=== PATIENT | female | born 1945 | race Caucasian/White ===

== ENCOUNTER 2024-08-18 09:45 | Day surgery (SDC) | payer MEDICARE, OTHER, SELFPAY ==
--- NOTE | 2024-08-18 11:48 | ITS.CL.CARDI ---
Cafeteria Or Lunchroom Checker - Cardioversion
Cardioversion
Procedure Report:
Date of Procedure: 08/18/24
Procedure: Cardioversion
Indication: Symptomatic atrial fibrillation
Performing Physician: Evan Robbins MD
Technique: The patient was brought to the holding area. Signed informed consent was obtained. A time out was called and performed. The patient was anesthetized by the anesthesia service. Anticoagulation status was reviewed and appropriate. R2 pads
were placed anteriorly and posteriorly. A 200 J synchronized biphasic shock restored normal sinus rhythm without significant bradycardia. There were no complications.
Conclusion: Uncomplicated cardioversion from atrial fibrillation to sinus rhythm.
Recommendation: Routine post cardioversion care. Continue intermodal truck driver anticoagulation.
== END 2024-08-18 12:35 | disposition home or self-care (01) ==
LOC: CATH 09:45
PROVIDERS: ATTENDING PHYSICIAN Internal Medicine Cardiovascular Disease; FAMILY PHYSICIAN Family Medicine; OTHER PHYSICIAN Internal Medicine Cardiovascular Disease
DX: I48.91 Unspecified atrial fibrillation (principal); Z79.01 Long term (current) use of anticoagulants
CPT/HCPCS: 92960; 93005

== ENCOUNTER → 2024-09-14 11:32 | Outpatient (REF) | payer MEDICARE, OTHER, SELFPAY ==
[2024-09-14 15:22] LABS: ALT (SGPT) 14 U/L (0-35); AST (SGOT) 19 U/L (14-36); Albumin 4.6 g/dl (3.5-5.0); Alkaline Phosphatase 91 U/L (38-126); Blood Urea Nitrogen 11 mg/dl (7-17); Calcium 9.9 mg/dl (8.4-10.2); Carbon Dioxide 30 mmol/L (22-30); Chloride 100 mmol/L (98-107); Glucose 99 mg/dl (70-99); HDL Cholesterol 55 mg/dl; LDL Cholesterol, Calculated 65 mg/dl; Potassium 4.7 mmol/L (3.5-5.1); Sodium 137 mmol/L (135-145); Total Bilirubin 0.7 mg/dl (0.2-1.3); Total Cholesterol 143 mg/dl (50-199); Total Protein 7.4 g/dl (6.3-8.2); Triglyceride 115 mg/dl (10-149); Very Low Density Lipoprotein 23 mg/dl (0-30); eGFR > 60.00
[2024-09-14 15:49] LABS: TSH 3.91 uIU/ml (0.47-4.68)
== END ==
LOC: RCS 11:32
PROVIDERS: ATTENDING PHYSICIAN Internal Medicine Cardiovascular Disease; FAMILY PHYSICIAN Family Medicine
DX: I48.3 Typical atrial flutter (principal); E78.5 Hyperlipidemia, unspecified
CPT/HCPCS: 36415; 80053; 80061; 84443; 93306; Q9950

== ENCOUNTER → 2024-11-11 12:29 | Outpatient (REF) | payer MEDICARE, OTHER, SELFPAY ==
[2024-11-11 13:24] LABS: Hematocrit 35.1 % (37.0-47.0); Hemoglobin 11.7 g/dL (12.0-16.0); Mean Corp Hgb Conc. 33.3 g/dL (33.0-37.0); Mean Corpuscular Volume 95.9 fL (81.0-99.0); Nucleated Red Blood Cells % 0 %; Platelet Count 228 10^3/uL (130-400); Red Cell Dist. Width 12.7 % (11.5-14.5)
[2024-11-11 13:34] LABS: INR 1.18; PT 15.3 Sec (11.4-14.6)
[2024-11-11 13:59] LABS: ALT (SGPT) 13 U/L (0-35); AST (SGOT) 22 U/L (14-36); Albumin 4.4 g/dl (3.5-5.0); Alkaline Phosphatase 78 U/L (38-126); Blood Urea Nitrogen 13 mg/dl (7-17); Calcium 9.5 mg/dl (8.4-10.2); Carbon Dioxide 29 mmol/L (22-30); Chloride 101 mmol/L (98-107); Glucose 99 mg/dl (70-99); Magnesium 2.1 mg/dl (1.6-2.3); Potassium 5.8 mmol/L (3.5-5.1); Sodium 135 mmol/L (135-145); Total Protein 7.6 g/dl (6.3-8.2); eGFR > 60.00
== END ==
LOC: SDSPAT 12:29
PROVIDERS: ATTENDING PHYSICIAN Internal Medicine Cardiovascular Disease; FAMILY PHYSICIAN Family Medicine; REFERRING PHYSICIAN Internal Medicine Cardiovascular Disease
DX: I48.0 Paroxysmal atrial fibrillation (principal)
CPT/HCPCS: 36415; 75572; 80053; 83735; 85025; 85610; 86850; 86900; 86901; Q9967

== ENCOUNTER → 2024-11-15 14:29 | Outpatient (REF) | payer MEDICARE, OTHER, SELFPAY ==
[2024-11-15 15:32] LABS: Hematocrit 34.2 % (37.0-47.0); Hemoglobin 11.4 g/dL (12.0-16.0); Mean Corp Hgb Conc. 33.3 g/dL (33.0-37.0); Mean Corpuscular Volume 95.8 fL (81.0-99.0); Nucleated Red Blood Cells % 0 %; Platelet Count 251 10^3/uL (130-400); Red Cell Dist. Width 12.7 % (11.5-14.5)
[2024-11-15 16:10] LABS: Blood Urea Nitrogen 12 mg/dl (7-17); Calcium 9.7 mg/dl (8.4-10.2); Carbon Dioxide 27 mmol/L (22-30); Chloride 100 mmol/L (98-107); Glucose 86 mg/dl (70-99); Potassium 4.8 mmol/L (3.5-5.1); Sodium 133 mmol/L (135-145); eGFR > 60.00
== END ==
LOC: REG 14:29
PROVIDERS: ATTENDING PHYSICIAN Internal Medicine Cardiovascular Disease; FAMILY PHYSICIAN Family Medicine
DX: I48.0 Paroxysmal atrial fibrillation (principal); E87.5 Hyperkalemia; D64.9 Anemia, unspecified
CPT/HCPCS: 36415; 80048; 85025

== ENCOUNTER 2024-11-16 08:41 | Day surgery (SDC) | payer MEDICARE, OTHER, SELFPAY ==
[2024-11-11 12:56] VITALS: BMI 28.5
[2024-11-16] VITALS (15 sets, daily range): BP systolic 96–147; BP diastolic 43–86; BMI 28.5
[2024-11-16] MEDS: TYLENOL 1000 MG PO (09:53)
[2024-11-16 12:07] LABS: ACT-LR - POC 258 Seconds (116-155)
[2024-11-16 12:26] LABS: ACT-LR - POC 287 Seconds (116-155)
[2024-11-16 12:45] LABS: ACT-LR - POC 385 Seconds (116-155)
[2024-11-16 13:01] LABS: ACT-LR - POC 358 Seconds (116-155)
[2024-11-16 13:17] LABS: ACT-LR - POC 335 Seconds (116-155)
[2024-11-16 13:33] LABS: ACT-LR - POC 361 Seconds (116-155)
[2024-11-16 13:49] LABS: ACT-LR - POC 137 Seconds (116-155)
--- NOTE | 2024-11-16 14:03 | ITS.CL.ABL ---
Bread Packer - Ablation
Ablation
Procedure Report:
Primary Medical Library Assistant: Dr Roby Otero
Procedure Date: 11/16/2024
Patient History:
Patient is a pleasant 78-year-old female with a past medical history significant for CVA, glaucoma, NSVT, hypertension, lumbar radiculopathy and surgeries, arthritis, symptomatic persistent atrial fibrillation.
See H&P for complete details.
Indication:
Symptomatic persistent atrial fibrillation
Arrhythmia Specific History:
Prior Medical Therapies for Rate and Rhythm Control:
X Beta-elías
[ ] Calcium channel-elías
[ ] Amiodarone
[ ] Dronederone
[ ] Sotalol
[ ] Flecainide
[ ] Dofetilide
[ ] Options limited by bradycardia
[ ] Options limited by comorbid renal disease
Prior Procedural Therapies for AF/AFL:
X Cardioversion
[ ] Pulmonary Vein Isolation
[ ] Posterior Wall Isolation
[ ] Additional lines (Specify)
[ ] Surgical [place]-MAZE or PVI (Specify)
Procedure Performed:
X AF ablation procedure (81891) -- includes LA/CS pacing, trans-septal, 3D mapping, + ICE
[ ] +IV drug (54702)
[ ] +Other Arrhythmia (20736)
X +Other AF Line/ablation (86557 x2) -- floor line, roof line, posterior wall isolation
Risks and expected recovery has been explained in detail. Alternative options have been explored, and in a shared-decision making fashion we have decided that this was the most appropriate procedure.
Method
NPO status confirmed. Grounding pad applied. Defibrillator pads applied. Continuous surface ECG, pulse oximetry, and blood pressure were monitored. Procedure was performed under general anesthesia, with anesthesia services.
Both groins were clipped, prepped with Chloraprep, and draped in sterile fashion. Time out was called. Local anesthesia administered with bupivacaine. The right femoral vein was accessed for catheter placement, using ultrasound guidance (images
saved to record), micro-puncture needle/wire, and modified seldinger technique. 3 sheaths were placed. The following catheters were used:
[ ] Tacticath SE (D/F Curve) ablation catheter
X Viewflex 9Fr ICE catheter
X Inquiry decapolar 6Fr diagnostic catheter
[ ] CRD Hex 6Fr
X FlexCath Contour 10 Fr with PulseSelect PFA Catheter
X Advisor HD Grid Mapping Catheter, SE
[ ] Acuson AcuNav 8 Fr ICE catheter
[ ]Other: [ ]
Intracardiac ultrasound (ICE) was carefully advanced into the right atrium to guide sheath placement over a J-wire, catheter placement, guide trans-septal puncture, identify potential complications, identify anatomic structures and ensure proper
contact between ablation catheter and tissue.
Heparin was given prior to trans-septal puncture. Heparin was given to achieve and maintain a target ACT of 300-400 seconds throughout the procedure.
Trans-septal access was performed under ICE guidance. The trans-septal puncture was performed with a SafeSept wire through a Brockenbrough needle assembly through the steerable sheath. The wire was visualized as it entered the LSPV and system
advanced under ICE guidance and fluoroscopy into the LA. The Brockenbrough needle assembly, SafeSept wire and sheath dilator were removed under negative pressure. LA pressure was measured and recorded.
ICE and 3D mapping was performed to identify relevant cardiac structures. A careful 3D map was created to assess for regions of low-voltage and abnormal electrogram signals using HD grid mapping catheter and PulseSelect catheter. Additional mapping
was performed as outlined below.
Prior to ablation, glycopyrrolate was provided. PulseSelect catheter was advanced over J-wire to the ostium of each vein. Pulmonary vein isolation was performed with ostial and antral lesions in a circumferential manner. Contact was visualized via
EAM, ICE, fluoroscopy, and EGM signals.
After accomplishing pulmonary venous isolation, mapping identified additional areas likely to be extra PV contributors to atrial fibrillation. These areas demonstrated patchy low voltage as well as complex fractionated electrograms. These areas can
be sites for the formation of rotors which can drive and maintain atrial fibrillation. These areas are known to be significant contributors to initiation and perpetuation of atrial fibrillation.
Additional energy applications/additional ablation sets targeted extra PV contributors to atrial fibrillation.
Targets for additional PFA ablation included: LA posterior wall targeted with pulsed electric field energy isolating the posterior wall of the left atrium. Posterior wall isolation was performed by anchoring the J-wire within the pulmonary vein and
placing the PulseSelect catheter in contact posterior wall as visualized by aforementioned methods.
After ablation of the posterior wall, targets remained including:
- Inferior LA floor
- Anterior LA roof
These areas were ablated using pulsed electric field energy eliminating the extra PV contributors to atrial fibrillation.
Following completion of ablation lesions, sinus rhythm was restored with a 200J synchronized DCCV and a post-ablation voltage/activation map was performed in sinus rhythm. Entrance and exit block were confirmed for each vein and the posterior wall.
Catheter and sheath were removed from the left atrium and post-ablation intracardiac echo evaluation was consistent with pre-ablation with no changes and no pericardial effusion and there is no left atrial thrombus or left ventricle thrombus seen.
Electrophysiology study was performed. Hemostasis was obtained with figure of 8 stitch for each groin and with manual pressure. Protamine was used for reversal.
Estimated Blood Loss
5 mL
Complications
None
Fluoroscopy: 10.6 minutes; 18.51 mGy; DAP 6.88
LA Pressure: Pre 13 mmHg, post 7 mmHg
Baseline Intervals:
Rhythm: AF
QRS: 78 ms
QT: 358 ms
QTc: 496 ms
Post-Procedure Intervals:
TN: 206 ms
QRS: 71 ms
QT: 428 ms
QTc: 468 ms
AVWB: 380 ms
Recommendations
- Bedrest with straight-leg precautions as ordered
- Admit with anticipate discharge home tomorrow after overnight observation
- Resume home medications as indicated
- Ok to resume anticoagulation tonight if patient and groin sites stable
- PPI daily for 30 days
- Plan for follow-up in office as scheduled
Bandar Diaz DO, FACC, RS
Clinical [employer]
cc: Dr Roby Otero, Dr Ruddy Padilla
[2024-11-16] MEDS: ANESTHETIC LOZENGE 1 LOZENGE PO (16:25)
--- NOTE | 2024-11-16 16:29 | PTCARENOTE ---
Rec'd pt from assistant laboratory director. R groin is c/d/i w/ figure 8 suture. No bleeding/hematoma noted. Pt has no complaints of CP/discomfort/SOB at this time. Activity restrictions reviewed w/ pt and verbalizes understanding. Currently in bed; call jessica w/in
reach.
[2024-11-16] MEDS: NEURONTIN PO (18:11)
[2024-11-16] MEDS: LIPITOR 40 MG PO (18:27)
[2024-11-16] MEDS: NEURONTIN 100 MG PO ×2 (18:27→22:45)
[2024-11-16] MEDS: TIMOPTIC 0.5% OPHTHALMIC SOLUTION 1 DROP BOTH EYES (21:01)
[2024-11-16] MEDS: XARELTO 20 MG PO (21:01)
[2024-11-16] MEDS: XALATAN OPHTHALMIC SOLUTION 1 DROP BOTH EYES (22:45)
--- NOTE | 2024-11-17 01:42 | PTCARENOTE ---
Pt AAOx3, VSS and sating 96% RA. Denies any chest discomfort or SOB. Tele monitor shows SR w/ 1st AV block, HR in the 60-80s at rest. Right groin site C/D/I. Patient ambulates w/ standby assist. Denies any dizziness. Aware of POC, call lopez in
reach.
[2024-11-17 02:06] VITALS: BP 137/85; BMI 28.3
[2024-11-17] MEDS: ANESTHETIC LOZENGE 1 LOZENGE PO (02:23)
[2024-11-17 02:53] LABS: Hematocrit 30.9 % (37.0-47.0); Hemoglobin 10.2 g/dL (12.0-16.0); Mean Corp Hgb Conc. 33.0 g/dL (33.0-37.0); Mean Corpuscular Volume 96.0 fL (81.0-99.0); Platelet Count 228 10^3/uL (130-400); Red Cell Dist. Width 13.1 % (11.5-14.5)
[2024-11-17 03:20] LABS: Blood Urea Nitrogen 15 mg/dl (7-17); Calcium 9.3 mg/dl (8.4-10.2); Carbon Dioxide 27 mmol/L (22-30); Chloride 105 mmol/L (98-107); Estimated Creatinine Clearance 56 ml/min; Glucose 141 mg/dl (70-99); Magnesium 1.9 mg/dl (1.6-2.3); Potassium 4.4 mmol/L (3.5-5.1); Sodium 134 mmol/L (135-145); eGFR > 60.00
[2024-11-17 07:19] VITALS: BP 110/53
[2024-11-17] MEDS: TIMOPTIC 0.5% OPHTHALMIC SOLUTION 1 DROP BOTH EYES (07:47)
[2024-11-17] MEDS: TOPROL XL 50 MG PO (07:51)
[2024-11-17] MEDS: NEURONTIN 100 MG PO (07:51)
[2024-11-17] MEDS: PROTONIX 40 MG PO (07:51)
--- NOTE | 2024-11-17 08:30 | W.PN.CARDCBS ---
Addendum entered and electronically signed by Terry Morillo MD 11/17/24 09:54:
patient seen and examined
agree with CHURCH ORGANIST note and assessment
agree with CHURCH ORGANIST plan
SR on tele
groins CDI
Exam:
aao x 3
non focal neurologically
cor regular
rest of exam deferred
Impression:
Symptomatic persistent Afib/Aflutter
post PVI PFA 11/16/24
CVA 05/2020
Hyperlipidemia
NSVT
DDD
Knee arthritis
Glaucoma
Plan:
post ablation feels good
tele SR 1deg AVB, occ PVC's and PAC's
groin stable
OAC Xarelto
continue metoprolol xl 50mg
PPI x 30 days
OOB ambulate
f/u Dr. Otero in 3 mo
home today
Original Note:
Today's Communication / Plan
-
post ablation, stable for d/c home
Impression / Plan
-
PCP: Ruddy Padilla MD
CDY: Roby Otero MD
Patient is a pleasant 78-year-old female with a past medical history significant for CVA, glaucoma, NSVT, hypertension, lumbar radiculopathy and surgeries, arthritis, symptomatic persistent atrial fibrillation.
See H&P for complete details.
Indication:
Symptomatic persistent atrial fibrillation
Impression:
Symptomatic persistent Afib/Aflutter
post PVI PFA 11/16/24
CVA 05/2020
Hyperlipidemia
NSVT
DDD
Knee arthritis
Glaucoma
Plan:
post ablation feels good
tele SR 1deg AVB, occ PVC's and PAC's
groin stable
OAC Xarelto
continue metoprolol xl 50mg
PPI x 30 days
OOB ambulate
f/u Dr. Otero in 3 mo
home today
Progress Note - Frame Stylist
Subjective
Date of Service: November 17, 2024
denies cp, sob
Objective
Labs:
11/17/24 02:18
11/17/24 02:18
Labs
Hgb 10.2 g/dL (12.0-16.0) L 11/17/24 02:18
Hct 30.9 % (37.0-47.0) L 11/17/24 02:18
Plt Count 228 10^3/uL (130-400) 11/17/24 02:18
Sodium 134 mmol/L (135-145) L 11/17/24 02:18
Potassium 4.4 mmol/L (3.5-5.1) 11/17/24 02:18
BUN 15 mg/dl (7-17) 11/17/24 02:18
Creatinine 0.7 mg/dL (0.6-1.0) 11/17/24 02:18
Glucose 141 mg/dl (70-99) H 11/17/24 02:18
Vital Signs and I&O:
Vital Signs
Temp Pulse Resp BP Pulse Ox
97.7 F 68 18 110/53 95
11/17/24 07:19 11/17/24 08:00 11/17/24 07:19 11/17/24 07:51 11/17/24 07:19
Vital Signs
Temp Pulse Resp BP Pulse Ox
97.7 F 68 18 110/53 95
11/17/24 07:19 11/17/24 08:00 11/17/24 07:19 11/17/24 07:51 11/17/24 07:19
Intake & Output
11/15/24 11/16/24 11/17/24 11/18/24
06:59 06:59 06:59 06:59
Intake Total 1440 / 1440
Balance 1440 / 1440
Physical Exam
Physical Exam
NAD, AOX3
s1, s2, RRR
CTAB, diminished b/l bases, non labored, no wheeze
SNTND bsx4
R fem site c/d/i no HT, soft
--- NOTE | 2024-11-17 10:50 | CM ---
Reviewed chart. Met with Mrs. Archer to review discharge plans. She states prior to admission she resides with her spouse in a three story home. She states she has fifteen steps to get to bedroom/full bathroom. She states prior to admission she
was independent with ambulation and adls. She states she does not have any DME in the home. She states she has a prescription plan. The discharge plan is to return home with her spouse when medically stable.
[2024-11-17 11:40] VITALS: BP 120/68
--- NOTE | 2024-11-17 13:21 | W.DS.TRANS ---
DC Summary - [employer] Developer
-
Discharge Instructions:
Sleep Apnea Risk Low
Discharge Diagnosis/Procedures Atrial fibrillation post ablation
Diet Low Cholesterol
Driving Restrictions No driving for 24 hours
Instructions:
Stand-Alone Forms: DC Instructions- Cath/EP Lab
Changes to Home Medications: No
Discharge Medications:
DC Medications w/original date entered in [facility]
acetaminophen 500 mg tablet (Tylenol Extra Strength) 500 mg PO Q4HPRN PRN mild or moderate pain 09/03/20
atorvastatin 40 mg tablet 40 mg PO QPM #30 tabs 09/03/20
ferrous sulfate 325 mg (65 mg iron) tablet (FeroSul) 325 mg PO DAILY #90 tabs 09/03/20
gabapentin 100 mg capsule 100 mg PO TID #90 caps 09/03/20
latanoprost 0.005 % eye drops 0 drp ophthalmic (eye) HS 09/03/20
metoprolol succinate 50 mg tablet,extended release 24 hr 50 mg PO DAILY #90 tabs 09/03/20
ondansetron HCl 4 mg tablet 2 mg (1/2 x 4 mg) PO Q8HPRN PRN nausea #30 tabs 09/03/20
timolol maleate 0.5 % eye drops 0 drp ophthalmic (eye) BID 09/03/20
Vital Tears 1 drp BOTH EYES DAILY 02/06/23
rivaroxaban 20 mg tablet (Xarelto) 20 mg PO QNOON 02/06/23
varenicline tartrate 0.03 mg/spray metered nasal spray (Tyrvaya) 1 spray intranasal BID 02/06/23
pantoprazole 40 mg tablet,delayed release 40 mg PO DAILY #30 tabs 11/17/24
Home Medication Changes
Pending Results: No
== END 2024-11-17 12:38 | disposition home or self-care (01) ==
LOC: CATH 08:41
PROVIDERS: Nurse Practitioner Adult Health; ATTENDING PHYSICIAN Internal Medicine Cardiovascular Disease; FAMILY PHYSICIAN Family Medicine; OTHER PHYSICIAN Internal Medicine Cardiovascular Disease
DX: I48.19 Other persistent atrial fibrillation (principal); I48.92 Unspecified atrial flutter; Z86.73 Personal history of transient ischemic attack (TIA), and cerebral infarction without residual deficits; E78.5 Hyperlipidemia, unspecified; I47.20 Ventricular tachycardia, unspecified; H40.9 Unspecified glaucoma; M19.90 Unspecified osteoarthritis, unspecified site; I44.0 Atrioventricular block, first degree; I10 Essential (primary) hypertension; I49.1 Atrial premature depolarization; I49.3 Ventricular premature depolarization; Z98.890 Other specified postprocedural states; Z79.01 Long term (current) use of anticoagulants; Z79.899 Other long term (current) drug therapy
CPT/HCPCS: C1733; C1766; C1732; C1894; C1730; C1769; 80048; 83735; 85027; 85347; 93005; 93656; 93657

== ENCOUNTER 2025-02-17 02:49 | Emergency (ER) | payer MEDICARE, OTHER, SELFPAY ==
[2025-02-17] VITALS (7 sets, daily range): BP systolic 151–178; BP diastolic 64–100; BMI 29.2
[2025-02-17 03:29] LABS: Hematocrit 33.5 % (37.0-47.0); Hemoglobin 11.1 g/dL (12.0-16.0); Mean Corp Hgb Conc. 33.1 g/dL (33.0-37.0); Mean Corpuscular Volume 94.6 fL (81.0-99.0); Nucleated Red Blood Cells % 0 %; Platelet Count 243 10^3/uL (130-400); Red Cell Dist. Width 13.5 % (11.5-14.5)
[2025-02-17 03:54] LABS: ALT (SGPT) 26 U/L (0-35); AST (SGOT) 33 U/L (14-36); Albumin 4.7 g/dl (3.5-5.0); Alkaline Phosphatase 103 U/L (38-126); Blood Urea Nitrogen 12 mg/dl (7-17); Calcium 9.9 mg/dl (8.4-10.2); Carbon Dioxide 27 mmol/L (22-30); Chloride 96 mmol/L (98-107); Estimated Creatinine Clearance 56 ml/min; Glucose 103 mg/dl (70-99); Lipase 162 U/L (23-300); Potassium 4.5 mmol/L (3.5-5.1); Sodium 133 mmol/L (135-145); Total Protein 8.2 g/dl (6.3-8.2); eGFR > 60.00
[2025-02-17 04:03] LABS: Troponin I < 0.012 ng/ml
--- NOTE | 2025-02-17 06:47 | ED.GENMED ---
History of Present Illness
General
Chief Complaint: Abdominal Symptoms
Source: patient
Exam Limitations: none
Time Seen by Provider: 02/17/25 02:51
Nursing documentation reviewed up to this point in time: agreed with
History of Present Illness
History of Present Illness:
Note:
CHIEF COMPLAINT(S)
Difficulty swallowing and tightness in the throat region.
HISTORY OF PRESENT ILLNESS
The patient is an 79-year-old female who presents with complaints of difficulty swallowing and tightness under the chin area. The symptoms started after she went to bed as usual and experienced some trouble swallowing. Upon awakening, she noticed
heightened difficulty in swallowing, accompanied by a feeling of tightness particularly under the jawline. She reports a history of heart ablation performed in December and a lower back surgery. The patient expressed that she was scared due to her
inability to breathe comfortably. However, she denies any significant belly pain at present. She reports feeling slightly better at the moment of examination. The patients swallowing issue led her to contact her son, who advised her to seek medical
attention.
PAST MEDICAL AND SURGICAL HISTORY
The patient has a history of heart ablation and lower back surgery. Additional details include an incomplete knee surgery due to a failed blood test, requiring medical clearance.
SOCIAL DETERMINANTS AFFECTING HEALTH
The patient has expressed the desire to see her grandchildren grow up, indicating family support and motivation for health improvement.
ALLERGIES
The patient is allergic to cyclosporin and cyclosporine derivatives.
PHYSICAL EXAM
General: Alert, no acute distress.
Skin: Warm, dry.
Head: Normocephalic, atraumatic.
Neck: Supple, trachea midline.
Eye Ears, nose, mouth and throat: Oral mucosa moist.
Cardiovascular: Normal peripheral perfusion, No edema.
Respiratory: Respirations are non-labored.
Gastrointestinal: Abdomen nondistended
Back: Normal range of motion, Normal alignment.
Musculoskeletal: Normal ROM, normal strength.
Neurological: Alert and oriented to person, place, time, and situation, No focal neurological deficit observed.
Psychiatric: Cooperative, appropriate mood & affect.
PLAN
The plan involves conducting blood tests to further investigate the cause of the symptoms and provide appropriate treatment.
DIFFERENTIAL DIAGNOSIS
The Differential Diagnosis includes, in no particular order and is not limited to:
1. Dysphagia due to esophageal spasm
2. Post-surgical complications
3. Gastroesophageal reflux disease (GERD)
4. Allergic reaction
5. Angioedema
6. Myasthenia gravis
7. Zenkers diverticulum
8. Goiter or other thyroid disorder
9. Cardiac etiology related to recent heart ablation
10. Neurological disorder affecting swallowing.
CARE-UPDATE
02/17/25 - 05:12
Patient reports resolution of abdominal discomfort and is currently resting comfortably. X-rays show no obvious signs of bowel obstruction.
Disposition:
SUMMARY OF ENCOUNTER
The patient, an 79-year-old female, presented to the emergency department with abdominal pain, bloating, and difficulty swallowing, which began after she was awakened at midnight by increased belching and epigastric pain during swallowing. She
arrived via EMS, denied chest pain, and reported her history of atrial fibrillation as well as hypertension. An abdomen X-ray showed no signs of obstructions.
DISPOSITION
The patient is to be discharged home.
ASSESSMENT
The patients presentation is suggestive of possible gastrointestinal issues causing her symptoms. An esophageal or gastric source of pain is considered due to the epigastric pain on swallowing and accompanied bloating.
PLAN
The plan is to discharge the patient with instructions for follow-up care as needed should symptoms persist or worsen.
INDEPENDENT REVIEW OF LABS AND INTERPRETATION OF TESTS
- My independent interpretation of the abdominal X-ray shows no signs of obstruction.
- A CT scan of the abdomen/pelvis was also performed, with the official report pending.
PATIENT EDUCATION AND COUNSELING
The patient was advised to monitor symptoms and seek medical attention if symptoms worsen. She was educated on the potential causes of her discomfort and reassured about the lack of obstruction as per radiological investigations.
FOLLOW-UP INSTRUCTIONS
The patient should follow up with her primary care provider if symptoms persist or worsen.
MEDICAL DECISION MAKING
- Number and Complexity of Problems Addressed: Chronic conditions affecting care include hypertension and atrial fibrillation. Differential Diagnosis includes dysphagia, possible esophageal spasm, gastroesophageal issues, and potential cardiac
complications.
- Data:
Category 1
Tests reviewed: Abdominal X-ray and CT scan of the abdomen/pelvis.
Category 3
Discussion of management: No explicit mention of discussion with other providers.
DIAGNOSIS
1. Dysphagia (R13.10)
2. Abdominal Pain, Epigastric (R10.13)
3. Bloating (R14.0)
Past History
Past History
ED Past Medical History: Other (Glaucoma)
ED Past Surgical History: Orthopedic and Other (Eye surgeries)
Social History
Tobacco: Non-smoker
Alcohol: None
Drug: None
Personal:
Living: with family
Employment: Retired
Family History
Family History: Other
Phy Exam
Physical Exam
Physical Exam:
.
Course
Orders/Labs/Results
Orders:
Orders
02/17/25 03:15
Electrocardiogram (*1) Urgent
Reason for Study: Abdominal Pain
02/17/25 03:16
EKG- Treatment ONCE
02/17/25 03:17
Complete Blood Count/With Diff Urgent
Comprehensive Metabolic Panel Urgent
Lactic Acid Urgent
Lipase Urgent
Troponin I Urgent
02/17/25 03:54
Obstruct Series W/PA Chest [CR Obstruct Series W/pa Chest] Urgent
Comment:
Reason For Exam: abd pain/distention
02/17/25 05:50
CT Abd/pelvis W Iv Cont Urgent
Comment:
Reason For Exam: abd pain, difficulty swallowing
Abnormal Lab Results
02/17/25
03:17
RBC 3.54 L 10^6/uL
(4.20-5.40)
Hgb 11.1 L g/dL
(12.0-16.0)
Hct 33.5 L %
(37.0-47.0)
MCH 31.4 H pg
(27.0-31.0)
Absolute Monos (auto) 0.8 H 10^3/uL
(0.1-0.6)
Monocytes % 10.0 H %
(1.7-9.3)
Sodium 133 L mmol/L
(135-145)
Chloride 96 L mmol/L
(98-107)
Glucose 103 H mg/dl
(70-99)
02/17/25 03:17
02/17/25 03:17
Vital Signs
Initial and Last Documented VS:
Initial Vital Signs
Temp Pulse Resp BP Pulse Ox
98.1 F 78 23 178/100 96
02/17/25 02:55 02/17/25 02:55 02/17/25 02:55 02/17/25 02:55 02/17/25 02:55
Last Documented Vital Signs
Temp Pulse Resp BP Pulse Ox
98.1 F 72 23 153/67 96
02/17/25 02:55 02/17/25 04:00 02/17/25 04:00 02/17/25 07:00 02/17/25 07:01
*Pulse Oximetry
SaO2: 96
Oxygen Mode of Delivery: Room air
Patient hypoxic: no
*Critical Care Note
Total Time (30-74mins, 75-104mins- exclusive of procedures): Not Applicable
ED Attending Note
-
Portions of this chart may have been created with voice recognition software.� Occasional wrong word or��sound alike� substitutions may have occurred due to the inherent limitations of voice recognition software.
Discharge Plan
Departure
Patient Disposition: Home (Routine Discharge)
Date of Disposition: 02/17/25
Time of Disposition: 07:30
Patient with high blood pressure during this ER visit?: Yes
Condition: Good
Discharge Problem:
Abdominal pain, Abdominal bloating
Instructions: [place] Diet, Abdominal Pain
Prescriptions:
No Action
Xarelto 20 mg Tablet
20 mg PO QNOON
Tyrvaya 0.03 mg/spray [place], Metered, Non-Aerosol
1 spray INTRANASAL BID
Rx Instructions:
administer into each nostril; approximately 12 hours apart
Vital Tears
1 drp BOTH EYES DAILY
pantoprazole 40 mg Tablet,Delayed Release (Dr/Ec)
40 mg PO DAILY Qty: 30 0RF
latanoprost 1 DROP drops
0 drp ophthalmic (eye) HS 0RF
atorvastatin 40 MG tablet
40 mg PO QPM Qty: 30 0RF
metoprolol succinate 50 MG tablet extended release 24 hr
50 mg PO DAILY Qty: 90 0RF
ondansetron HCl 4 MG tablet
2 mg PO Q8HPRN PRN (Reason: nausea) Qty: 30 0RF
acetaminophen [Tylenol Extra Strength] 500 MG tablet
500 mg PO Q4HPRN PRN (Reason: mild or moderate pain) 0RF
ferrous sulfate [FeroSul] 325 MG tablet
325 mg PO DAILY Qty: 90 0RF
gabapentin 100 MG capsule
100 mg PO TID Qty: 90 0RF
timolol maleate 1 DROP drops
0 drp ophthalmic (eye) BID 0RF
Referrals:
Ruddy Padilla MD [Family Provider, Family Practice]
Activity Restrictions/Additional Instructions:
Thank You for choosing [facility].
It was a pleasure meeting you and taking part in your care. We hope for your continued healing and wellness.
Please read discharge instructions in their entirety. However, they are for general education and may not describe your exact diagnosis at discharge. Information on your ER visit and medical conditions were discussed with you along with appropriate
follow up information...
If indicated, please take your medications as instructed and indicated on discharge paperwork.
Please schedule a follow up appointment as directed. Call to schedule an appointment
Please return to the emergency department with ANY change in, persisting, or worsening of symptoms. If any of your symptoms do not improve, or persist, or become more severe within 6-12 hours, please return to the emergency department for further
care.
Please return to the emergency department if you develop a headache, neck pain/stiffness, fever greater than 100.4F, chest pain, shortness of breath, persistent nausea, vomiting, slurred speech, difficulty walking, numbness/tingling, weakness, signs
of infection or any other symptoms that are worrisome to you.
If you have any questions or concerns please do not hesitate to call the Hospital at .
On CT, a small hiatal hernia was noted and some degree of constipation was also noted as well, moderate diverticulosis but no sign of infection. The gallbladder was mildly distended however your liver numbers and white blood cell normal.
Interventions
Interventions:
*Risk Screen - Suicide Last Done: 02/17/25 02:55
*General Assessment Last Done: 02/17/25 02:55
*Neglect/Abuse Screening Last Done: 02/17/25 02:55
*ED- Fall Risk Assessment Last Done: 02/17/25 03:05
*ED COVID-19 Vaccine History Last Done: 02/17/25 03:05
*ED Influenza Vaccine History Last Done: 02/17/25 03:05
*Nursing Disposition Last Done: 02/17/25 07:15
[employer]-[place]-[employer]xd[employer] Assessment Last Done: 02/17/25 03:05
Discharge Date and Time
Discharge Date/Time: 02/17/25 07:15
Print Language: KOSOVAN
== END 2025-02-17 07:15 | disposition home or self-care (01) ==
LOC: EMR 02:49
PROVIDERS: EMERGENCY PHYSICIAN Student in an Organized Health Care Education/Training Program; FAMILY PHYSICIAN Family Medicine
DX: R10.9 Unspecified abdominal pain (principal); R14.0 Abdominal distension (gaseous); H40.9 Unspecified glaucoma; Z90.710 Acquired absence of both cervix and uterus; Z98.1 Arthrodesis status
CPT/HCPCS: 99284; 74022; 74177; 80053; 83605; 83690; 84484; 85025; 93005; Q9967